=== PATIENT | male | born 1945 | race Asian ===

== ENCOUNTER → 2022-04-23 | Day surgery (SDC) | payer MEDICARE, MEDICAID ==
[~2022-04-23] VITALS: Ht 167.6 cm; Wt 68.1 kg
[~2022-04-23] MED LIST: ALBUTEROL SULFATE 2.5 MG/0.5 ML NEB SOLUTION NEB ONE; BENZOCAINE 20% 50 MCG/SPRAY 57 GM TP ONE; FentaNYL CITRATE PF 100 MCG/2 ML VIAL ONE; LIDOCAINE 2% 11 ML JELLY TP ONE; LIDOCAINE 4% 50 ML SOLUTION TP ONE; MIDAZOLAM HCL 2 MG/2 ML VIAL ONE; MIDAZOLAM HCL 5 MG/ML VIAL ONE; MethylPREDNISolone SOD SUCC 125 MG/2 ML VIAL IVP ONE; MethylPREDNISolone SOD SUCC 125 MG/2 ML VIAL ONE; OXYGEN THERAPY IH SCH
[2022-04-23 07:23] LABS: COVID AG,FIA SOURCE NASAL SWAB
== END | disposition home or self-care (01) ==
LOC: SURGERY 07:00
PROVIDERS: ATTEND Internal Medicine Critical Care Medicine
DX: R05.3 Chronic cough (principal); R91.1 Solitary pulmonary nodule; B37.0 Candidal stomatitis; J45.909 Unspecified asthma, uncomplicated; I10 Essential (primary) hypertension; Z20.822 Contact with and (suspected) exposure to COVID-19; Z79.899 Other long term (current) drug therapy; Z88.8 Allergy status to other drugs, medicaments and biological substances
CPT/HCPCS: 31623; 88305; 88112; 87206; 87101; 87220; 87070; 88312; 31624; 71045; 87015; 87426; J3010; J2250; J2930; Q9967; C9803; J7613; Z7610